=== PATIENT | male | born 1930 | race Caucasian/White ===

== ENCOUNTER 2016-07-14 07:16 | Inpatient (IN) | payer MEDICARE, BC ==
--- NOTE | 2016-07-14 07:39 | ED ---
Altered Mental Status HPI - General Stated Complaint: altered mental status Time Seen by Provider: 07/14/16 07:20 Source: RN notes reviewed Mode of arrival: EMS Limitations: altered mental status - History of Present Illness Initial Comments: This patient is an 86-year-old man transferred from his extended care facility. On initial evaluation he was unresponsive and there was no accompanying history. MD Complaint: altered mental status -: unknown Severity: severe Consistency of Symptoms: unknown - Related Data Home Medications Medication Instructions Recorded Confirmed Aspirin EC [Ecotrin Low Dose] 81 mg PO DAILY 07/14/16 07/14/16 Atorvastatin [Lipitor] 80 mg PO HS 07/14/16 07/14/16 Cholecalciferol [Vitamin D3] 1,000 unit PO DAILY 07/14/16 07/14/16 Dorzolamide/Timolol/Pf [Cosopt Pf 1 drop BOTH EYES BID 07/14/16 07/14/16 2%/5% Ophth Droperette] Latanoprost [Xalatan 0.005%] 1 drop BOTH EYES HS 07/14/16 07/14/16 Metoprolol Tartrate [Lopressor] 50 mg PO BID 07/14/16 07/14/16 Travoprost [Travatan Z 0.004%] 1 drop BOTH EYES HS 07/14/16 07/14/16 Warfarin [Coumadin] 5 mg PO DAILY 07/14/16 07/14/16 metFORMIN HCL [Glucophage] 500 mg PO W/BRKFST 07/14/16 07/14/16 predniSONE 1 mg PO DAILY 07/14/16 07/14/16 Allergies Allergy/AdvReac Type Severity Reaction Status Date / Time Unable to Assess Allergy Verified 07/14/16 09:07 Review of Systems ROS Statement: Those systems with pertinent positive or pertinent negative responses have been documented in the HPI. ROS Other: All systems not noted in ROS Statement are negative. Limitations: ROS unobtainable due to patients medical condition Past Medical History - Past Family History Father Family Medical History: Unable to Obtain Mother Family Medical History: Unable to Obtain General Exam General appearance: obtunded Head exam: Present: atraumatic, normocephalic Eye exam: Absent: PERRL, EOMI, scleral icterus, conjunctival injection ENT exam: Present: other (There is ecchymosis to the left side of the tongue and a moderate amount of swelling. Small tongue laceration with no current active bleeding.) Neck exam: Present: other (The patient has a little bit of ecchymosis and some soft tissue swelling at the left lateral aspect of the neck). Absent: tenderness Respiratory exam: Present: rhonchi. Absent: respiratory distress, wheezes, rales, stridor, chest wall tenderness Cardiovascular Exam: Present: regular rate, normal rhythm, normal heart sounds. Absent: systolic murmur, diastolic murmur, rubs, gallop GI/Abdominal exam: Present: soft. Absent: tenderness, guarding, rebound, mass, pulsatile mass Extremities exam: Present: normal inspection, normal capillary refill. Absent: pedal edema, calf tenderness Back exam: Present: other Neurological exam: Present: altered. Absent: CN II-XII intact (left pupil dilated versus contralateral. There is a weak gag reflex.), reflexes normal ( Toes upgoing) Skin exam: Present: warm, dry, intact, normal color, other (Ecchymosis as above) . Absent: rash Course Vital Signs 07/14/16 07/14/16 07/14/16 07:25 07:30 08:14 Temperature 98.5 F Pulse Rate 110 H 95 88 Pulse Rate [ Apical] Respiratory 22 20 22 Rate Blood Pressure 181/111 179/112 183/124 O2 Sat by Pulse 83 L 98 85 L Oximetry 07/14/16 07/14/16 07/14/16 08:15 08:20 08:32 Temperature Pulse Rate 88 74 Pulse Rate [ 112 H Apical] Respiratory 22 220 H Rate Blood Pressure 235/107 218/106 O2 Sat by Pulse 100 100 Oximetry 07/14/16 07/14/16 07/14/16 08:45 08:53 09:10 Temperature Pulse Rate 78 61 87 Pulse Rate [ Apical] Respiratory 22 8 L 14 Rate Blood Pressure 225/108 137/74 O2 Sat by Pulse 98 75 L 76 L Oximetry 07/14/16 07/14/16 09:57 10:43 Temperature Pulse Rate 91 72 Pulse Rate [ Apical] Respiratory 6 L 8 L Rate Blood Pressure 122/55 91/66 O2 Sat by Pulse 82 L 88 L Oximetry - Reevaluation(s) Reevaluation #1: 07/14/16 10:53 Did discuss the patient's care with Dr. Shetty who is covering for Dr. wharton. Patient be admitted with hospice consult. Medical Decision Making - Medical Decision Making This patient is an 86-year-old man who appears to have had a fall during the night at his facility. Sent for CT of the head and C-spine that does show subdural and intraparenchymal hemorrhage. There is midline shift and herniation developing. I did have discussion with the patient's family member who had arrived and she phoned the patient's two sisters. The consensus from the family is that the patient should be made Comfort Care only, and not have any machine life-support or CPR. They do not believe that the patient would be a surgical candidate. - Lab Data Result diagrams: 07/14/16 07:40 07/14/16 07:40 Lab Results 07/14/16 07/14/16 07/14/16 Range/Units 07:40 07:40 07:40 WBC 10.1 (3.8-10.6) k/uL RBC 3.88 L (4.30-5.90) m/uL Hgb 12.6 L (13.0-17.5) gm/dL Hct 38.1 L (39.0-53.0) % MCV 98.2 (80.0-100.0) fL MCH 32.4 (25.0-35.0) pg MCHC 33.0 (31.0-37.0) g/dL RDW 13.7 (11.5-15.5) % Plt Count 181 (150-450) k/uL Neutrophils % 82 % Lymphocytes % 11 % Monocytes % 6 % Eosinophils % 0 % Basophils % 0 % Neutrophils # 8.3 H (1.3-7.7) k/uL Lymphocytes # 1.1 (1.0-4.8) k/uL Monocytes # 0.6 (0-1.0) k/uL Eosinophils # 0.0 (0-0.7) k/uL Basophils # 0.0 (0-0.2) k/uL PT (9.0-12.0) sec INR (<1.1) APTT (22.0-30.0) sec Sodium (137-145) mmol/L Potassium (3.5-5.1) mmol/L Chloride (98-107) mmol/L Carbon Dioxide (22-30) mmol/L Anion Gap mmol/L BUN (9-20) mg/dL Creatinine (0.66-1.25) mg/dL Est GFR (MDRD) Af Amer (>60 ml/min/1.73 sqM) Est GFR (MDRD) Non-Af (>60 ml/min/1.73 sqM) Glucose (74-99) mg/dL Plasma Lactic Acid Feroz 2.2 H* (0.7-2.0) mmol/L Calcium (8.4-10.2) mg/dL Total Bilirubin (0.2-1.3) mg/dL AST (17-59) U/L ALT (21-72) U/L Alkaline Phosphatase (38-126) U/L Ammonia <9 (<30) umol/L Total Creatine Kinase 105 (55-170) U/L CK-MB (CK-2) 4.0 H* (0.0-2.4) ng/mL CK-MB (CK-2) Rel Index 3.8 Troponin I 0.027 (0.000-0.034) ng/mL Total Protein (6.3-8.2) g/dL Albumin (3.5-5.0) g/dL Urine Color Urine Appearance (Clear) Urine pH (5.0-8.0) Ur Specific [place] (1.001-1.035) Urine Protein (Negative) Urine Glucose (UA) (Negative) Urine Ketones (Negative) Urine Blood (Negative) Urine Nitrate (Negative) Urine Bilirubin (Negative) Urine Urobilinogen (<2.0) mg/dL Ur Leukocyte Esterase (Negative) Urine RBC (0-5) /hpf Urine WBC (0-5) /hpf Hyaline Casts (0-2) /lpf Urine Mucus (None) /hpf 07/14/16 07/14/16 07/14/16 Range/Units 07:40 07:40 07:55 WBC (3.8-10.6) k/uL RBC (4.30-5.90) m/uL Hgb (13.0-17.5) gm/dL Hct (39.0-53.0) % MCV (80.0-100.0) fL MCH (25.0-35.0) pg MCHC (31.0-37.0) g/dL RDW (11.5-15.5) % Plt Count (150-450) k/uL Neutrophils % % Lymphocytes % % Monocytes % % Eosinophils % % Basophils % % Neutrophils # (1.3-7.7) k/uL Lymphocytes # (1.0-4.8) k/uL Monocytes # (0-1.0) k/uL Eosinophils # (0-0.7) k/uL Basophils # (0-0.2) k/uL PT 51.0 H (9.0-12.0) sec INR 5.1 H* (<1.1) APTT 29.9 (22.0-30.0) sec Sodium 138 (137-145) mmol/L Potassium 4.0 (3.5-5.1) mmol/L Chloride 102 (98-107) mmol/L Carbon Dioxide 27 (22-30) mmol/L Anion Gap 9 mmol/L BUN 21 H (9-20) mg/dL Creatinine 1.13 (0.66-1.25) mg/dL Est GFR (MDRD) Af Amer >60 (>60 ml/min/1.73 sqM) Est GFR (MDRD) Non-Af >60 (>60 ml/min/1.73 sqM) Glucose 227 H (74-99) mg/dL Plasma Lactic Acid Feroz (0.7-2.0) mmol/L Calcium 8.8 (8.4-10.2) mg/dL Total Bilirubin 1.0 (0.2-1.3) mg/dL AST 30 (17-59) U/L ALT 44 (21-72) U/L Alkaline Phosphatase 102 (38-126) U/L Ammonia (<30) umol/L Total Creatine Kinase (55-170) U/L CK-MB (CK-2) (0.0-2.4) ng/mL CK-MB (CK-2) Rel Index Troponin I (0.000-0.034) ng/mL Total Protein 7.1 (6.3-8.2) g/dL Albumin 3.4 L (3.5-5.0) g/dL Urine Color Yellow Urine Appearance Clear (Clear) Urine pH 7.0 (5.0-8.0) Ur Specific [place] 1.012 (1.001-1.035) Urine Protein 1+ H (Negative) Urine Glucose (UA) 3+ H (Negative) Urine Ketones Negative (Negative) Urine Blood Trace H (Negative) Urine Nitrate Negative (Negative) Urine Bilirubin Negative (Negative) Urine Urobilinogen <2.0 (<2.0) mg/dL Ur Leukocyte Esterase Negative (Negative) Urine RBC 7 H (0-5) /hpf Urine WBC 3 (0-5) /hpf Hyaline Casts 1 (0-2) /lpf Urine Mucus Rare H (None) /hpf - EKG Data -: EKG Interpreted by Me EKG shows normal: sinus rhythm, intervals Rate: tachycardia (Rate approximately 110 bpm) Interpretation: nonspecific ST-T wave changes, LVH Disposition Clinical Impression: Altered mental status, Subdural hematoma, Coumadin toxicity Disposition: ADMITTED IP TO THIS HOSP Condition: Critical
[2016-07-14 07:42] VITALS: TEMP 98.5
[2016-07-14 07:55] LABS: Basophils % (A) 0 %; CH 33.1; CHCM 33.9; Eosinophils % (A) 0 %; HCT 38.1 % (39.0-53.0); HDW 2.89; HGB 12.6 gm/dL (13.0-17.5); Luc # (Auto) 0.12; Luc % (Auto) 1; Lymphocytes # (A) 1.1 k/uL (1.0-4.8); Lymphocytes % (A) 11 %; MCH 32.4 pg (25.0-35.0); MCV 98.2 fL (80.0-100.0); Mean Platelet Volume 7.7; Monocytes # (A) 0.6 k/uL (0-1.0); Monocytes % (A) 6 %; Neutrophils # (A) 8.3 k/uL (1.3-7.7); Neutrophils % (A) 82 %; RBC 3.88 m/uL (4.30-5.90); RDW 13.7 % (11.5-15.5); WBC 10.1 k/uL (3.8-10.6)
[2016-07-14 08:08] LABS: ALT 44 U/L (21-72); AST 30 U/L (17-59); Alkaline Phosphatase 102 U/L (38-126); Anion Gap 9 mmol/L; Blood Urea Nitrogen 21 mg/dL (9-20); Calcium 8.8 mg/dL (8.4-10.2); Carbon Dioxide 27 mmol/L (22-30); Chloride 102 mmol/L (98-107); Glucose 227 mg/dL (74-99); Non-African American GFR(MDRD) >60 (>60 ml/min/1.73 sqM); Sodium 138 mmol/L (137-145); Total Protein 7.1 g/dL (6.3-8.2)
[2016-07-14 08:11] LABS: Appearance,Urine Clear (Clear); Bilirubin,Urine Negative (Negative); Glucose,Urine (UA) 3+ (Negative); Ketones,Urine Negative (Negative); Leukocyte Esterase,Urine Negative (Negative); Mucus,Urine Rare /hpf; Nitrite,Urine Negative (Negative); Particle Count 4066; Protein,Urine 1+ (Negative); RBC,Urine 7 /hpf (0-5); Specific Gravity,Urine 1.012 (1.001-1.035); UA Billing (MACRO vs. MICRO) MICRO; Urobilinogen,Urine <2.0 mg/dL (<2.0); WBC,Urine 3 /hpf (0-5)
[2016-07-14 08:12] LABS: Ammonia <9 umol/L (<30)
[2016-07-14 08:13] LABS: Partial Thromboplastin Time 29.9 sec (22.0-30.0)
[2016-07-14 08:20] LABS: INR 5.1 (<1.1)
[2016-07-14] MEDS ORDERED: MORPHINE SULFATE 4 MG/ML SYRINGE IVP STA (08:24)
[2016-07-14] MEDS ORDERED: MORPHINE SULFATE 4 MG/ML SYRINGE IV STA (08:24)
[2016-07-14 08:30] LABS: Troponin I 0.027 ng/mL (0.000-0.034)
--- NOTE | 2016-07-14 08:36 | CT ---
EXAMINATION TYPE: CT brain siomaraine wo con DATE OF EXAM: 07/14/2016 8:17 AM COMPARISON: 08/09/2013 HISTORY: 86-year-old male male bruising to left side of the neck and posteriorly are, edema and brui sing to the left side of the tongue. CT DLP: 1090.4 mGycm Automated exposure control for dose reduction was used. Technique: Examination of the head was done in axial plane without intravenous contrast. Coronal and sagittal reconstructions performed. CT of the cervical spine was obtained in axial plane without intravenous injection of contrast mater ial. Coronal and sagittal reformatted images were obtained from the axial views for evaluation of f ractures, spinal alignment and canal. FINDINGS: Head: No calvarial fracture is seen. There is large subdural hematoma along the right lateral convexity extending from front to back measu ring 1.6 cm thick. Additional large subdural hematoma along the falx extending from front to back timothy suring 2.0 cm thick. There is additional subdural hematoma extending down along the floor of the righ t middle cranial fossa and along both leaves of the tentorium cerebelli, measuring up to 7 mm thick o n the right. There is pronounced mass effect on to the right cerebral hemisphere with a 1.8 cm of leftward midline shift and complete flattening of the right lateral ventricle. There is leftward subfalcine herniation and right-sided uncal herniation. Confluent white matter hypodensities similar prior likely severe burden of chronic small vessel ische terell disease. Some of the subdural hemorrhage shows mixed density and suggestion of layering blood products; this m ay relate to anticoagulation status. Mild to moderate mucosal thickening ethmoid air cells and moderate within the left maxillary sinus. Cervical spine: No craniocervical junction of the body, predental space widening, or prevertebral soft tissue swellin g. Facet arthropathy particularly on the left within the upper cervical spine. Normal alignment. There is a subtle obliquely oriented lucency seen along the anterior corner of the T2 superior endplate, sagittal image 39 which may have a correlate on the axial series, image 87. Otherwise, no other fractures seen. Sagittal and coronal reformatted images confirm above findings. COMBINED IMPRESSION: 1. Extensive acute subdural hematomas especially along the right convexity and falx. The subdural hem atomas measure up to 2 cm thick. A hematocrit level suggesting anticoagulation status. 2. Significant mass effect with leftward midline shift of 1.8 cm with effaced right lateral ventricle , leftward subfalcine herniation and right-sided uncal herniation. 3. Cervical spine with possible subtle nondisplaced fracture of the anterior corner of the T2 superio r endplate. Alignment is maintained. Findings called to Dr. Mederos in the ER at approximately 8:20 AM.
[2016-07-14] MEDS ORDERED: HYDROmorphone 1 MG/ML 1 ML SYRINGE IVP STA (08:49)
[2016-07-14] MEDS ORDERED: HYDROmorphone 1 MG/ML 1 ML SYRINGE IV PRN (10:44)
[2016-07-14] MEDS ORDERED: NALOXONE 0.4 MG/ML 1 ML VIAL IV PRN (10:44)
[2016-07-14] MEDS ORDERED: SODIUM CHLORIDE 0.9% 1,000 ML IV SCH (10:45)
[2016-07-14] MEDS ORDERED: MORPHINE SULFATE 2 MG/ML SYRINGE IVP ONE (10:46)
[2016-07-14 11:25] VITALS: BP 96/60; PULSE 96; RESP 10
--- NOTE | 2016-07-14 13:04 | P.HPIM ---
History of Present Illness H&P Date: 07/14/16 Chief Complaint: intracranial bleeding Patient is an 86-year-old male who was transferred from an extended care facility due to mental status changes and unresponsiveness. He underwent a computed tomography scan of the brain in the emergency room which revealed evidence of a large intracranial bleeding. Possibility of transferring patient via helicopter to a tertiary care facility for intermediate surgery was discussed with family by emergency room physician however decision was made to proceed with admission and the comfort care only was hospice. Past Medical History Past Medical History: Atrial Fibrillation, Coronary Artery Disease (CAD), CVA/ TIA, Diabetes Mellitus, Eye Disorder, Hyperlipidemia, Hypertension, Syncope Additional Past Medical History / Comment(s): Afib with past RVR, glaucoma bilaterally, anemia, vertebrobasilar insufficiency, nephrolithiasis, TIA, rhematic fever, vertigo. History of Any Multi-Drug Resistant Organisms: Unobtainable Past Surgical History: Coronary Bypass/CABG, Heart Catheterization, Hernia Repair Additional Past Surgical History / Comment(s): 2013 R renal needle bx, R partial nephrectomy for benign cyst, CABG 1989-08 vessel, bilateral inguinal hernia repairs. Past Anesthesia/Blood Transfusion Reactions: Unable to Obtain Past Psychological History: Unable to Obtain Smoking Status: Never smoker Past Alcohol Use History: None Reported Past Drug Use History: None Reported - Past Family History Father Family Medical History: Unable to Obtain Mother Family Medical History: Unable to Obtain Medications and Allergies Home Medications Medication Instructions Recorded Confirmed Type Aspirin EC [Ecotrin Low Dose] 81 mg PO DAILY 07/14/16 07/14/16 History Atorvastatin [Lipitor] 80 mg PO HS 07/14/16 07/14/16 History Cholecalciferol [Vitamin D3] 1,000 unit PO DAILY 07/14/16 07/14/16 History Dorzolamide/Timolol/Pf [Cosopt Pf 1 drop BOTH EYES BID 07/14/16 07/14/16 History 2%/5% Ophth Droperette] Latanoprost [Xalatan 0.005%] 1 drop BOTH EYES HS 07/14/16 07/14/16 History Metoprolol Tartrate [Lopressor] 50 mg PO BID 07/14/16 07/14/16 History Travoprost [Travatan Z 0.004%] 1 drop BOTH EYES HS 07/14/16 07/14/16 History Warfarin [Coumadin] 5 mg PO DAILY 07/14/16 07/14/16 History metFORMIN HCL [Glucophage] 500 mg PO W/BRKFST 07/14/16 07/14/16 History predniSONE 1 mg PO DAILY 07/14/16 07/14/16 History Allergies Allergy/AdvReac Type Severity Reaction Status Date / Time Unable to Assess Allergy Verified 07/14/16 09:07 Physical Exam Vitals: Vital Signs Pulse Resp BP Pulse Ox 07/14/16 11:24 96 10 L 96/60 83 L Patient is an responsive he is having labored breathing with audible coarse crackles HEENT without any acute abnormality Neck is supple no JVD Chest exam reveals a crackles in both lung jade no wheezing Cardiac exam reveals regular heart sounds no murmurs Abdomen is soft nontender no organomegaly Extremity exam reveals no edema Results CBC & Chem 7: 07/14/16 07:40 07/14/16 07:40 Thrombosis Risk Factor Assmnt - Choose All That Apply Any of the Below Risk Factors Present?: Yes Each Factor Represents 1 point: Obesity (BMI >25) Other Risk Factors: Yes Each Risk Factor Represents 3 Points: Age 75 years or older Other congenital or acquired thrombophilia - If yes, enter type in comment: No Thrombosis Risk Factor Assessment Total Risk Factor Score: 4 Thrombosis Risk Factor Assessment Level: Moderate Risk Assessment and Plan Plan: #1 intracranial bleeding, cause is unclear family opted for comfort care only patient is admitted to hematology of flow Hospice consult has been initiated Will place patient on scopolamine patch Further orders for morphine or Ativan will be given as needed Patient is an responsive now Prognosis is terminal.
[2016-07-14] MEDS ORDERED: SCOPOLAMINE 1.5MG/72HR PATCH TRANSDERM SCH (14:00)
--- NOTE | 2016-07-17 15:41 | P.DS ---
Providers Date of admission: 07/14/16 10:47 Expected date of discharge: 07/15/16 Attending physician: Joseph Shetty Primary care physician: Heidi Miranda Hospital Course: Discharge diagnosis 1. Preliminary cause of intracranial bleeding 2. Paroxysmal Atrial fibrillation on Coumadin at home with elevated INR on admission 3. History of CVA 4. Diabetes mellitus type 2 5. Essential hypertension 6. Hyperlipidemia 7. Coagulopathy Hospital course This is a 86-year-old male who is brought into the emergency room by EMS from his extended care facility. Patient had mental status changes and was unresponsive. He was found to have an intracranial bleed. Computed tomography scan of the brain completed showed acute subdural hematomas along the right convexity and falx. The subdural hematomas measure up to 2 cm thick. Significant mass effect with leftward midline shift of 1.8 cm with face right lateral ventricle. Leftward subfalcine herniation and right sided uncal herniation. Cervical spine was possible subtle nondisplaced fracture at the anterior corner of the T2 superior endplate alignment is maintained. Possibility of transferring patient via helicopter to a tertiary care facility for immediate surgery was discussed with the family by the emergency room physician. The family decided to proceed with admission and place patient on comfort care with hospice. Hospice care was initiated. Inpatient on . Please refer to chart for any further details. Plan - Discharge Summary Discharge Medication List Aspirin EC [Ecotrin Low Dose] 81 mg PO DAILY 07/14/16 [History] Atorvastatin [Lipitor] 80 mg PO HS 07/14/16 [History] Cholecalciferol [Vitamin D3] 1,000 unit PO DAILY 07/14/16 [History] Dorzolamide/Timolol/Pf [Cosopt Pf 2%/5% Ophth Droperette] 1 drop BOTH EYES BID 07/14/16 [History] Latanoprost [Xalatan 0.005%] 1 drop BOTH EYES HS 07/14/16 [History] Metoprolol Tartrate [Lopressor] 50 mg PO BID 07/14/16 [History] Travoprost [Travatan Z 0.004%] 1 drop BOTH EYES HS 07/14/16 [History] Warfarin [Coumadin] 5 mg PO DAILY 07/14/16 [History] metFORMIN HCL [Glucophage] 500 mg PO W/BRKFST 07/14/16 [History] predniSONE 1 mg PO DAILY 07/14/16 [History] Follow up Appointment(s)/Referral(s): Heidi Miranda MD [Primary Care Provider] - 1-2 days Discharge Disposition: - Preliminary Cause of Preliminary Cause of : Intracranial bleeding with subdural hematomas
== END 2016-07-15 02:42 | disposition expired | DRG 82 ==
LOC: EC 07:16 → 5ONC 10:47
PROVIDERS: ADMIT Internal Medicine; ATTEND Internal Medicine
DX: G93.5 Compression of brain; J96.01 Acute respiratory failure with hypoxia; I48.0 Paroxysmal atrial fibrillation; E11.9 Type 2 diabetes mellitus without complications; I10 Essential (primary) hypertension; D64.9 Anemia, unspecified; Z51.5 Encounter for palliative care; I25.10 Atherosclerotic heart disease of native coronary artery without angina pectoris; E78.5 Hyperlipidemia, unspecified; H40.9 Unspecified glaucoma; R79.1 Abnormal coagulation profile; T45.515A Adverse effect of anticoagulants, initial encounter; Z86.73 Personal history of transient ischemic attack (TIA), and cerebral infarction without residual deficits; Z87.442 Personal history of urinary calculi; Z95.1 Presence of aortocoronary bypass graft; Z79.01 Long term (current) use of anticoagulants; Z79.84 Long term (current) use of oral hypoglycemic drugs; Z79.82 Long term (current) use of aspirin; Z79.52 Long term (current) use of systemic steroids; Z79.899 Other long term (current) drug therapy; W19.XXXA Unspecified fall, initial encounter; Y92.129 Unspecified place in nursing home as the place of occurrence of the external cause
CPT/HCPCS: 36415; 70450; 72125; 80053; 81001; 82140; 82550; 82553; 83605; 84484; 85025; 85610; 85730; 87040; 87086; 93005; 96374; 96375; 96376; 99285